=== PATIENT | female | born 1950 | race Caucasian/White ===

== ENCOUNTER 2019-05-25 17:37 | Emergency (ER) | payer BC ==
[2019-05-25 19:19] LABS: ABS Basophils 0.1 10^3/ul (0-0.2); ABS Lymphocytes 1.6 10^3/ul (1.0-4.8); ABS Monocytes 0.6 10^3/ul (0-0.8); ABS Neutrophils 9.4 10^3/ul (1.5-7.7); Eosinophil % 0.1 %; Hematocrit 38 % (35-47); Hemoglobin 13.3 g/dL (12.0-16.0); Lymphocyte % 13.3 %; Mean Corpuscular HGB Conc 35 g/dL (31-36); Mean Corpuscular Hemoglobin 30 pg (27-31); Mean Corpuscular Volume 87 fL (80-97); Mean Platelet Volume 6.9 fL (7.4-10.4); Platelet Count 345 10^3/uL (150-450); Red Cell Distribution Width 14 % (10-15); White Blood Count 11.7 10^3/uL (3.5-10.8)
[2019-05-25 19:38] LABS: Albumin 3.9 g/dL (3.2-5.2); Albumin/Globulin Ratio 1.5 (1-3); BUN/Creatinine Ratio 16.4 (8-20); C Reactive Protein 6.74 mg/L (<8.01); Calcium 8.9 mg/dL (8.6-10.3); EGFR African American 105.3 (>60); Globulin 2.6 g/dL (2-4); Total Bilirubin 0.6 mg/dL (0.2-1.0); Total Protein 6.5 g/dL (6.4-8.9)
[2019-05-25 19:45] LABS: Potassium 2.7 mmol/L (3.5-5.0)
--- NOTE | 2019-05-25 19:47 | ED ---
Palpitations / Dysrhythmia - HPI Summary HPI Summary: Patient complains of palpitations, lightheadedness, headache, decreased energy and elevated blood pressure up to SBP 150 starting around noon today. States baseline is SBP between 110 and 125. Patient checks BP regularly. Patient has history of hypertension, taking verapamil, hydrochlorothiazide. Compliant with medications. No prior history of palpitations. Hx of occasional headache. Denies trauma, fever, cough, sore throat, CP, SOB, N/3/D, abdominal pain, change in urine, change in BM. Medical history is HTN. Denies new medications , no dosages of medications, new supplements, caffeine use, EtOH, recreational drug use. - History of Current Complaint Chief Complaint: EDHypertension Time Seen by Provider: 05/25/19 18:48 Hx Obtained From: Patient, Family/Specialist Field Engineer Onset/Duration: Sudden Onset, Lasting Hours Severity Initially: Moderate Severity Currently: Mild Character: Pounding Aggravating: Nothing Alleviating: Nothing Associated Signs & Symptoms: Lightheadedness - Allergy/Home Medications Allergies/Adverse Reactions: Allergies Allergy/AdvReac Type Severity Reaction Status Date / Time bee venom protein (honey bee) Allergy Anaphylatic Verified 05/25/19 18:54 Shock ciprofloxacin [From Cipro] Allergy Airway Verified 05/25/19 17:40 Obstruction Home Medications: Home Medications Hydrochlorothiazide TAB* [Hydrodiuril TAB*] 50 mg PO DAILY 05/25/19 [History Confirmed 05/25/19] Verapamil TAB* [Calan TAB*] 40 mg PO DAILY 05/25/19 [History Confirmed 05/25/19] PMH/Surg Hx/FS Hx/Imm Hx Endocrine/Hematology History: Denies: Hx Anticoagulant Therapy Cardiovascular History: Denies: Hx Pacemaker/ICD History: Denies: Hx Dialysis Sensory History: Denies: Hx Eye Prosthesis Opthamlomology History: Denies: Hx Legally Blind EENT History: Denies: Hx Deafness Neurological History: Denies: Hx Dementia - Immunization History Date of Influenza Vaccine: 03/29/2019 Immunizations Up to Date: Yes Infectious Disease History: No Infectious Disease History: Denies: Traveled Outside the [place] in Last 30 Days - Family History Known Family History: Positive: Non-Contributory - Social History Alcohol Use: None Substance Use Type: Reports: None Smoking Status (MU): Never Smoked Tobacco Review of Systems Constitutional: Negative Eyes: Negative ENT: Negative Positive: Palpitations Respiratory: Negative Gastrointestinal: Negative Genitourinary: Negative Musculoskeletal: Negative Skin: Negative Neurological: Negative Psychological: Normal All Other Systems Reviewed And Are Negative: Yes Physical Exam Triage Information Reviewed: Yes Vital Signs On Initial Exam: Initial Vitals Temp Pulse Resp BP Pulse Ox 99.1 F 108 18 186/74 97 05/25/19 17:40 05/25/19 17:40 05/25/19 17:40 05/25/19 17:40 05/25/19 17:40 Vital Signs Reviewed: Yes Appearance: Positive: Well-Appearing Skin: Positive: Warm Head/Face: Positive: Normal Head/Face Inspection Eyes: Positive: Normal ENT: Positive: Normal ENT inspection Neck: Positive: Supple Respiratory/Lung Sounds: Positive: Clear to Auscultation Cardiovascular: Positive: Normal Abdomen Description: Positive: Nontender Musculoskeletal: Positive: Normal Neurological: Positive: Normal Psychiatric: Positive: Normal AVPU Assessment: Alert - [place] Coma Scale Best Eye Response: 4 - Spontaneous Best Motor Response: 6 - Obeys Commands Best Verbal Response: 5 - Oriented Coma Scale Total: 15 Procedures - Sedation Patient Received Moderate/Deep Sedation with Procedure: No Diagnostics - Vital Signs Vital Signs Temp Pulse Resp BP Pulse Ox 05/25/19 17:40 99.1 F 108 18 186/74 97 - Laboratory Lab Results: Lab Results 05/25/19 05/25/19 Range/Units 19:00 19:00 WBC 11.7 H (3.5-10.8) 10^3/uL RBC 4.40 (3.70-4.87) 10^6 /uL Hgb 13.3 (12.0-16.0) g/dL Hct 38 (35-47) % MCV 87 (80-97) fL MCH 30 (27-31) pg MCHC 35 (31-36) g/dL RDW 14 (10-15) % Plt Count 345 (150-450) 10^3/uL MPV 6.9 L (7.4-10.4) fL Neut % (Auto) 80.6 % Lymph % (Auto) 13.3 % [place] % (Auto) 5.4 % Eos % (Auto) 0.1 % Baso % (Auto) 0.6 % Absolute Neuts (auto) 9.4 H (1.5-7.7) 10^3/ul Absolute Lymphs (auto) 1.6 (1.0-4.8) 10^3/ul Absolute Monos (auto) 0.6 (0-0.8) 10^3/ul Absolute Eos (auto) 0.0 (0-0.6) 10^3/ul Absolute Basos (auto) 0.1 (0-0.2) 10^3/ul Absolute Nucleated RBC 0.0 10^3/ul Nucleated RBC % 0.0 Sodium 128 L (135-145) mmol/L Potassium Pending Chloride 90 L (101-111) mmol/L Carbon Dioxide 29 (22-32) mmol/L Anion Gap Pending BUN 11 (6-24) mg/dL Creatinine 0.67 (0.51-0.95) mg/dL Est GFR ( Amer) 105.3 (>60) Est GFR (Non-Af Amer) 87.0 (>60) BUN/Creatinine Ratio 16.4 (8-20) Glucose 116 H (70-100) mg/dL Calcium 8.9 (8.6-10.3) mg/dL Total Bilirubin 0.60 (0.2-1.0) mg/dL AST 30 (13-39) U/L ALT 39 (7-52) U/L Alkaline Phosphatase 61 (34-104) U/L Troponin I 0.00 (<0.04) ng/mL C-Reactive Protein 6.74 (<8.01) mg/L Total Protein 6.5 (6.4-8.9) g/dL Albumin 3.9 (3.2-5.2) g/dL Globulin 2.6 (2-4) g/dL Albumin/Globulin Ratio 1.5 (1-3) TSH Pending Result Diagrams: 05/25/19 19:00 05/26/19 00:36 Lab Statement: Any lab studies that have been ordered have been reviewed, and results considered in the medical decision making process. Course/Dx - Course Course Of Treatment: Patient complains of palpitations, lightheadedness, headache, decreased energy and elevated blood pressure up to SBP 150 starting around noon today. States baseline is SBP between 110 and 125. Patient checks BP regularly. Patient has history of hypertension, taking verapamil, hydrochlorothiazide. Compliant with medications. No prior history of palpitations. Hx of occasional headache. Denies trauma, fever, cough, sore throat, CP, SOB, N/3/D, abdominal pain, change in urine, change in BM. Medical history is HTN. Denies new medications, no dosages of medications, new supplements, caffeine use, EtOH, recreational drug use. BP initially elevated, self resolved. Patient has history of white coat syndrome. Vital signs otherwise within normal limits. Sodium 128. Potassium 2.7. Patient currently taking hydrochlorothiazide. Labs otherwise within normal limits. EKG sinus rhythm with heart rate of 100, some mild ST depression in lateral leads. Different from prior EKG. Potassium 40 MEQ by mouth and potassium 20 mg IV administered. 1 L normal saline. Patient states she feels much better. Repeat potassium hemolyzed 4 times. After discussion with the patient opted to discontinue attempting to repeat potassium level. Patient feels better. Patient will discontinue hydrochlorothiazide and follow-up with primary care regarding use of diuretic and simultaneous measurement of potassium level. - Diagnoses Provider Diagnoses: Hypokalemia, Hyponatremia, Lightheadedness, Headache Discharge ED - Sign-Out/Discharge Documenting (check all that apply): Patient Departure - Discharge Plan Condition: Stable Disposition: HOME Patient Education Materials: Hyponatremia (ED), Hypokalemia (ED) Referrals: Desmond SKAGGS,Tyrone Montenegro [Primary Care Provider] - Additional Instructions: Stopped taking diuretic until you follow-up with primary care. Eat potassium- rich foods. Return to the ED for any new or worsening symptoms. - Billing Disposition and Condition Condition: STABLE Disposition: Home - Attestation Statements Provider Attestation: I have seen the patient with the KRISTY and agree with the plan and documentation below except as noted - new hyponatremia and hypoK likely 2/2 diuretic use, given IVF and K. Pending repeat labs on my evaluation, No prior EKG to compare to (minimal ST dep lateral leads). Denies CP. Suspect majority of complaints 2/ 2 electrolyte disturbances. Pending re eval after IVF and labs. Terese Duong MD
[2019-05-25] MEDS ORDERED: Potassium Chlor TAB* 20 MEQ TAB.ER PO ONE (19:50)
[2019-05-25] MEDS ORDERED: NS 0.9% 1000 ML** 1,000 ML IV ONE (19:51)
[2019-05-25 20:03] LABS: TSH (Thyroid Stimulating Horm) 0.81 mcIU/mL (0.34-5.60)
[2019-05-25 20:08] LABS: Magnesium 1.7 mg/dL (1.9-2.7)
[2019-05-25] MEDS ORDERED: KCL 20 MEQ/100 ML IVPREMIX* 20 MEQ/100 ML BAG IV ONE (20:11)
[2019-05-25 23:19] LABS: Urine Appearance Clear; Urine Bacteria Absent (Absent); Urine Bilirubin Negative (Negative); Urine Blood 1+ (Negative); Urine Color Colorless; Urine Glucose Negative (Negative); Urine Ketones Trace (Negative); Urine Nitrite Negative (Negative); Urine Protein Negative (Negative); Urine Red Blood Cell Trace(0-2/hpf) (Absent); Urine Specific Gravity 1.002 (1.010-1.030); Urine Urobilinogen Negative (Negative); Urine White Blood Cell Absent (Absent)
[2019-05-26 01:41] VITALS: BP 123/60
== END 2019-05-26 01:41 | disposition home or self-care (01) ==
LOC: ED 17:37
DX: E87.6 Hypokalemia (principal); E87.1 Hypo-osmolality and hyponatremia; I10 Essential (primary) hypertension; Z79.899 Other long term (current) drug therapy; Z88.1 Allergy status to other antibiotic agents
CPT/HCPCS: 36415; 80053; 81003; 81015; 82803; 83735; 83880; 84132; 84443; 84484; 85025; 86140; 93005; 96360; 96361; 99284; A9270-GY; J3480